=== PATIENT | female | born 1975 | race African-American/Black ===

== ENCOUNTER 2019-04-08 19:07 | Emergency (ER) | END 2019-04-08 19:38 | disposition home or self-care (01) | LOC: NAV ERS 19:07 | DX: H10.33 Unspecified acute conjunctivitis, bilateral (principal); J06.9 Acute upper respiratory infection, unspecified; I10 Essential (primary) hypertension; Z79.899 Other long term (current) drug therapy | CPT/HCPCS: 99282 ==

== ENCOUNTER 2019-12-08 19:24 | Emergency (ER) | payer SELFPAY ==
[~2019-12-08 19:24] MED LIST: Iopamidol 370 76% 100 ML VIAL ONE
[2019-12-08] MEDS ORDERED: Acetaminophen 500 MG TAB ONE (19:38)
[2019-12-08] MEDS ORDERED: Morphine 4 MG/ML VIAL ONE (19:57)
[2019-12-08] MEDS ORDERED: Sodium Chloride 0.9% 1,000 ML ONE (19:57)
[2019-12-08] MEDS ORDERED: Ondansetron PF 4 MG/2 ML Vial ONE (19:57)
[2019-12-08] MEDS ORDERED: cefTRIAXone\\ROCEPHIN 1 GM VIAL ONE (19:57)
[2019-12-08] MEDS ORDERED: Sodium Chloride 0.9% 100 ML ONE (19:57)
[2019-12-08 20:33] LABS: Bilirubin Negative (Negative); Blood, Urine Trace (Negative); Clarity Clear (Clear); Glucose, Urine (Dipstick) Negative (Negative); Ketone, Urine Negative (Negative); Leukocyte Small (Negative); Nitrite Negative (Negative); Protein, Urine (Dipstick) Negative (Neg-Trace); Specific Gravity, Urine 1.015 (1.005-1.030); pH, Urine 6.5 (5.0-9.0)
[2019-12-08 20:39] LABS: #Basophils 0.1 thou/uL (0.0-0.2); #Eosinphils 0.3 thou/uL (0.0-0.7); #Lymphocytes 1.7 thou/uL (1.20-3.40); #Monocytes 0.7 thou/uL (0.11-0.59); #Neutrophils 5.9 thou/uL (1.40-6.50); %Basophils 1.6 % (0.0-1.0); %Monocytes 8.1 % (0.0-10.0); %Neutrophils 67.4 % (42.0-75.0); Hemoglobin 12.5 g/dL (12.0-16.0); Mean Corpuscular HGB CONC 30.1 g/dL (32.0-36.0); Mean Corpuscular Hemoglobin 24.2 pg (27.0-31.0); Mean Corpuscular Volume 80.4 fL (78.0-98.0); Mean Platelet Volume 9.9 fL (7.4-10.4); Platelet Count 284 thou/uL (130-400); RBC Distribution Width 14.7 % (11.5-14.5); Red Blood Cell (RBC) Count 5.16 mill/uL (4.20-5.40); White Blood Cell (WBC) Count 8.7 thou/uL (4.8-10.8)
[2019-12-08 20:45] LABS: RBC/HPF 0-3 HPF (0-3); Squamous Epithelial 0-3 HPF (0-3)
[2019-12-08 20:50] LABS: ALT (SGPT) 12 U/L (8-55); AST (SGOT) 13 U/L (5-34); Albumin 3.9 g/dL (3.5-5.0); Alkaline Phosphatase 67 U/L (40-110); Anion Gap 20 mmol/L (10-20); BUN (Urea Nitrogen) 8 mg/dL (7.0-18.7); Bilirubin, Total 0.6 mg/dL (0.2-1.2); Calc. Creatinine Clearance 0 mL/min (70-130); Calcium 9.1 mg/dL (7.8-10.44); Carbon Dioxide 22 mmol/L (22-29); Chloride 104 mmol/L (98-107); Estimated GFR-MDRD 78; Globulin 3.6 g/dL (2.4-3.5); Glucose 150 mg/dL (70-105); Potassium 3.8 mmol/L (3.5-5.1); Protein, Total 7.5 g/dL (6.0-8.3); Sodium 142 mmol/L (136-145)
--- NOTE | 2019-12-08 21:36 | CT ---
CT ABDOMEN AND PELVIS WITH IV CONTRAST: 12/08/19 HISTORY: Fever, pain in the labial region, concern for labial abscess. FINDINGS: The lung bases are clear. The liver, spleen, pancreas, adrenal glands and kidneys are normal. No calc ified gallstones are seen. A normal appearing appendix is present. The small bowel loops are not abno rmally dilated. The patient is post hysterectomy. The aorta is normal caliber. Degenerative changes a re seen in the spine. There is induration of the fat of the left labia. No abnormally loculated fluid collection is seen to suggest abscess formation. There is mild colonic diverticulosis. IMPRESSION: Findings are consistent with cellulitis involving the left labia. No evidence of abscess formation. POS: OFF
[2019-12-08] MEDS ORDERED: Sodium Chloride 0.9% 250 ML 250 ML ONE (21:58)
== END 2019-12-08 22:08 | disposition short-term general hospital (02) ==
LOC: NAV ERS 19:24
DX: N76.2 Acute vulvitis (principal); R74.0 Nonspecific elevation of levels of transaminase and lactic acid dehydrogenase [LDH]; R50.9 Fever, unspecified; Z20.828 Contact with and (suspected) exposure to other viral communicable diseases; I10 Essential (primary) hypertension; E66.9 Obesity, unspecified; Z79.899 Other long term (current) drug therapy
CPT/HCPCS: 74177; 80053; 81003; 81015; 83605; 85025; 86140; 87040; 96365; 96367; 96375; J0696; J2270; J2405; J3370; J3490; J7050; Q9967

== ENCOUNTER 2021-03-03 14:27 | Emergency (ER) | payer OTHER ==
[2021-03-03] MEDS ORDERED: Sodium Chloride 0.9% 1,000 ML ONE (15:11)
[2021-03-03] MEDS ORDERED: diphenhydrAMINE 50 MG/ML VIAL ONE (15:11)
[2021-03-03] MEDS ORDERED: Metoclopramide HCl 10 MG/2 ML VIAL ONE (15:11)
[2021-03-03] MEDS ORDERED: Sodium Chloride 0.9% 100 ML ONE (15:11)
[2021-03-03 15:27] LABS: Anion Gap 15 mmol/L (10-20); BUN (Urea Nitrogen) 9 mg/dL (7.0-18.7); Calc. Creatinine Clearance 0 mL/min (70-130); Calcium 9.2 mg/dL (7.8-10.44); Carbon Dioxide 26 mmol/L (22-29); Chloride 105 mmol/L (98-107); Glucose 115 mg/dL (70-105); Potassium 3.3 mmol/L (3.5-5.1); Sodium 143 mmol/L (136-145)
== END 2021-03-03 16:40 | disposition home or self-care (01) ==
LOC: NAV ERS 14:27
DX: G43.909 Migraine, unspecified, not intractable, without status migrainosus (principal); I10 Essential (primary) hypertension
CPT/HCPCS: 80048; 96365; 96375; J1200; J2765; J7050

== ENCOUNTER 2021-05-08 12:47 | Emergency (ER) | payer OTHER, SELFPAY ==
[2021-05-09 14:50] LABS: SARS-CoV-2 PCR by NAA DETECTED (NotDetected)
== END 2021-05-08 15:05 | disposition home or self-care (01) ==
LOC: NAV ERS 12:47
DX: U07.1 COVID-19 (principal); I10 Essential (primary) hypertension; E66.9 Obesity, unspecified
CPT/HCPCS: 87804; 99284; U0003; U0005

== ENCOUNTER 2021-06-12 01:34 | Emergency (ER) | payer SELFPAY ==
[2021-06-12] MEDS ORDERED: EPINEPHrine 1 MG/10 ML Abboject SYRINGE ONE (09:00)
[2021-06-12] MEDS ORDERED: Amiodarone 150 MG/3 ML VIAL ONE (09:00)
[2021-06-12] MEDS ORDERED: Sodium Bicarb 50 MEQ/50 ML Abboject 8.4% SYRINGE ONE (09:00)
[2021-06-13 00:24] LABS: SARS-CoV-2 PCR by NAA Indeterminate (NotDetected)
== END 2021-06-12 04:48 | disposition expired ==
LOC: NAV ERS 01:34
DX: I46.9 Cardiac arrest, cause unspecified (principal); Z20.822 Contact with and (suspected) exposure to COVID-19
CPT/HCPCS: 31500; 92950; 96374; 96375; J0171; J0282; U0003; U0005